=== PATIENT | female | born 1985 | race Caucasian/White ===

== ENCOUNTER 2020-07-15 13:01 | Emergency (ER) | payer OTHER ==
[~2020-07-15 13:01] MED LIST: FLOMAX0.4 MG PO; IBUPROFEN600 MG PO; TORADOL 10 MG T10 MG PO; ZOFRAN ODT 4 MG4 MG PO; ZOFRAN4 MG PO
== END 2020-07-15 13:40 | disposition home or self-care (01) ==
LOC: ER1 13:01
DX: S61.412A Laceration without foreign body of left hand, initial encounter (principal); G40.909 Epilepsy, unspecified, not intractable, without status epilepticus; W26.9XXA Contact with unspecified sharp object(s), initial encounter
CPT/HCPCS: 12001; 99283

== ENCOUNTER → 2021-03-01 | Outpatient (CLI) | payer OTHER ==
[2021-03-01 08:37] LABS: HEMOGLOBIN 14.1 gm/dl (12.3-15.3); RED BLOOD COUNT 5.09 M/UL (4.00-5.10); WHITE BLOOD COUNT 10.8 K/UL (4.5-11.0)
[2021-03-01 08:58] LABS: BUN/CREATININE RATIO 7 (0-10)
== END ==
LOC: LAB 08:04
PROVIDERS: Psychiatry & Neurology Clinical Neurophysiology
DX: G40.209 Localization-related (focal) (partial) symptomatic epilepsy and epileptic syndromes with complex partial seizures, not intractable, without status epilepticus (principal); E55.9 Vitamin D deficiency, unspecified
CPT/HCPCS: 36415; 80053; 85025

== ENCOUNTER → 2021-06-28 | Outpatient (CLI) | payer OTHER | LOC: LAB 08:33 | PROVIDERS: Psychiatry & Neurology Clinical Neurophysiology | DX: Z79.899 Other long term (current) drug therapy (principal) | CPT/HCPCS: 36415; 80307 ==